=== PATIENT | female | born 1995 ===

== ENCOUNTER 2017-01-11 18:32 | Emergency (ER) | payer BC ==
[~2017-01-11] VITALS: Ht 165.1 cm; Wt 92.2 kg
[2017-01-11 18:38] VITALS: TEMP 36.7; Ht 165.1 cm; Wt 92.2 kg
[2017-01-11] MEDS ORDERED: KETOROLAC TROMETHAMINE 30 MG/ML VIAL IV STA (19:05)
[2017-01-11 19:58] LABS: BASO % 0.4 %; BASO ABS # 0.04 K/uL (0-0.2); COMPLETE YES; EOS % 1.8 %; HEMATOCRIT 40.6 % (37-47); IG% 0.1 %; LYMPH ABS # 2.59 K/uL (1.2-3.4); MEAN CELL VOLUME 89.6 fL (80-100); MEAN CORPUSCULAR HEMOGLOBIN 30.5 pg (25-34); MEAN PLATELET VOLUME 8.8 fL (7.4-10.4); NEUT % 63.7 %; PLATELET COUNT 322 K/uL (130-400); RED BLOOD COUNT 4.53 M/uL (4.2-5.4); WHITE BLOOD COUNT 9.96 K/uL (4.8-10.8)
[2017-01-11 20:09] LABS: PREG INTERNAL NEGATIVE QC NEG CLEAR BACKGROUND; PREG INTERNAL POSITIVE QC POS CONTROL LINE
[2017-01-11 20:10] LABS: PARTIAL THROMBOPLASTIN RATIO 1.4; PROTHROMBIN TIME (PATIENT) 10.5 SECONDS (9.0-12.0)
[2017-01-11 20:33] LABS: BUN/CREATININE RATIO 16.7 (10-20); CALCIUM 9.2 mg/dl (8.5-10.1); CREATININE 0.79 mg/dl (0.60-1.20); POTASSIUM 3.7 mmol/L (3.5-5.1)
[2017-01-11 20:36] LABS: ALB/GLOB RATIO 0.9 (0.9-2)
--- NOTE | 2017-01-11 21:13 | DIAGNOSTIC IMAGING REPORT ---
CHEST 2 VIEWS ROUTINE HISTORY: 21 years-old Female EVAL CHEST PAIN acute atypical chest pain COMPARISON: None available TECHNIQUE: Frontal and lateral views of the chest FINDINGS: Cardiomediastinal and hilar silhouettes are within normal limits. No pneumothorax, pleural effusion, focal airspace consolidation or overt pulmonary edema. Bones of the chest are grossly intact. IMPRESSION: No acute cardiopulmonary process. The above report was generated using voice recognition software. It may contain grammatical, syntax or spelling errors. Electronically signed by: Mikhail Badillo M.D. 01/11/2017 9:12 PM Dictated Date/Time: 01/11/2017 9:11 PM
[2017-01-11 21:26] LABS: PREG INTERNAL NEGATIVE QC NEG CLEAR BACKGROUND; PREG INTERNAL POSITIVE QC POS CONTROL LINE
--- NOTE | 2017-01-11 21:40 | EMERGENCY ROOM VISIT NOTE ---
History First contact with patient: 18:47 Chief Complaint: SHOULDER PAIN Stated Complaint: R SHOULDER PAIN, CHEST PAIN History of Present Illness Patient is a [id number] 21-year-old female who presents emergency department. I female friend for evaluation of right shoulder pain that radiates into the right upper chest. She's had pain for over one day. It started at rest at home yesterday. She describes a constant, aching pain in the right shoulder that radiates to the right upper chest. She tried Tylenol, BenGay and massage which only mild her with limited relief. The pain increased in severity today. She says the pain is not changed with position changes. She does note increased pain with laying on the right side or when she takes a deep breath. She also notes that she was bothered by carrying a bag on her right shoulder today. She denies any cough, congestion or shortness of breath. No abdominal pain, nausea or vomiting. She denies any trauma or unusual activity prior to onset of her pain. She denies any calf or leg pain or swelling. She does not smoke, is not on any oral contraceptives. No personal or family history of DVT or PE. She did travel by bus home to [place] , 2 days prior to the onset of her pain, and returned today. Review of Systems Review of systems as per HPI. All other systems reviewed were negative. 10 systems reviewed. Past Medical/Surgical History Medical Problems: (1) Gastritis (2) Stomach problems Does not have any old records for review. Supplemental sheet was completed by the patient was reviewed by myself. Social History Smoking Status: Never Smoker Alcohol Use: occasionally Housing Status: lives with roommate Occupation Status: [employer] student Current/Historical Medications No Active Prescriptions or Reported Meds Physical Exam Vital Signs Date Time Temp Pulse Resp B/P (MAP) Pulse Ox O2 Delivery O2 Flow Rate FiO2 01/11/17 21:45 68 16 116/87 100 01/11/17 21:07 60 18 115/68 100 Room Air 01/11/17 18:38 36.7 56 18 107/57 100 Room Air Physical Exam CONSTITUTIONAL: Patient is a well-appearing 21-year-old white female who is awake and alert and in no acute distress. Vital signs are stable. EYES: Pupils equal, round, reactive to light and accommodation. EOMs intact without nystagmus. Sclera are anicteric. ENT: Tympanic membranes intact, with normal landmarks. External canals are clear. Oral and nasopharynx are clear. Mucous membranes are moist, no lesions , tongue and gums appear normal. NECK: No bruits auscultated. Supple without lymphadenopathy. No thyromegaly. No meningeal signs. Full active range of motion without discomfort. CARDIOVASCULAR: Regular rate and rhythm, with normal S1 and S2, no murmur or gallop or rub is heard. No carotid bruits auscultated. No JVD. Peripheral pulses easy to palpable. There is slight discomfort on palpation of the right upper chest. RESPIRATORY: Breath sounds equal and clear to auscultation without wheezes, rales, or rhonchi heard. Full and equal chest expansion without accessory muscle use or retractions. GI: Bowel sounds are present. Abdomen is soft, nontender, nondistended. No organomegaly. No pulsatile masses. No guarding or rebound. MUSCULOSKELETAL: Full range of motion of extremities x 4 with good strength. No cyanosis, edema, joint tenderness or swelling. No deformity. INTEGUMENTARY: No lesions or rash, normal skin turgor. NEUROLOGICAL: Alert, oriented, and cooperative. Cranial nerves, sensation and strength grossly intact. Pupils round, equal, and react to light, EOMs are full. LYMPH: No lymphadenopathy. Medical Decision & Procedures ER Provider Diagnostic Interpretation: CHEST 2 VIEWS ROUTINE HISTORY: 21 years-old Female EVAL CHEST PAIN acute atypical chest pain COMPARISON: None available TECHNIQUE: Frontal and lateral views of the chest FINDINGS: Cardiomediastinal and hilar silhouettes are within normal limits. No pneumothorax, pleural effusion, focal airspace consolidation or overt pulmonary edema. Bones of the chest are grossly intact. IMPRESSION: No acute cardiopulmonary process. Laboratory Results 01/11/17 19:43 Red Blood Count 4.53, Mean Corpuscular Volume 89.6, Mean Corpuscular Hemoglobin 30.5, Mean Corpuscular Hemoglobin Concent 34.0, Mean Platelet Volume 8.8, Neutrophils (%) (Auto) 63.7, Lymphocytes (%) (Auto) 26.0, Monocytes (%) (Auto) 8.0, Eosinophils (%) (Auto) 1.8, Basophils (%) (Auto) 0.4, Neutrophils # (Auto) 6.34, Lymphocytes # (Auto) 2.59, Monocytes # (Auto) 0.80, Eosinophils # (Auto) 0.18, Basophils # (Auto) 0.04 01/11/17 19:43 Test 01/11/17 19:40 01/11/17 19:43 01/11/17 19:52 Urine Test NEG (NEG) White Blood Count 9.96 K/uL (4.8-10.8) Red Blood Count 4.53 M/uL (4.2-5.4) Hemoglobin 13.8 g/dL (12.0-16.0) Hematocrit 40.6 % (37-47) Mean Corpuscular Volume 89.6 fL (80-100) Mean Corpuscular Hemoglobin 30.5 pg (25-34) Mean Corpuscular Hemoglobin Concent 34.0 g/dl (32-36) Platelet Count 322 K/uL (130-400) Mean Platelet Volume 8.8 fL (7.4-10.4) Neutrophils (%) (Auto) 63.7 % Lymphocytes (%) (Auto) 26.0 % Monocytes (%) (Auto) 8.0 % Eosinophils (%) (Auto) 1.8 % Basophils (%) (Auto) 0.4 % Neutrophils # (Auto) 6.34 K/uL (1.4-6.5) Lymphocytes # (Auto) 2.59 K/uL (1.2-3.4) Monocytes # (Auto) 0.80 K/uL (0.11-0.59) Eosinophils # (Auto) 0.18 K/uL (0-0.5) Basophils # (Auto) 0.04 K/uL (0-0.2) RDW Standard Deviation 40.3 fL (36.4-46.3) RDW Coefficient of Variation 12.4 % (11.5-14.5) Immature Granulocyte % (Auto) 0.1 % Immature Granulocyte # (Auto) 0.01 K/uL (0.00-0.02) Prothrombin Time 10.5 SECONDS (9.0-12.0) Prothromb Time International Ratio 1.0 (0.9-1.1) Activated Partial Thromboplast Time 35.4 SECONDS (21.0-31.0) Partial Thromboplastin Ratio 1.4 Anion Gap 6.0 mmol/L (3-11) Est Creatinine Clear Calc Drug Dose 128.5 ml/min Estimated GFR () 125.8 Estimated GFR (Non- 108.5 BUN/Creatinine Ratio 16.7 (10-20) Calcium Level 9.2 mg/dl (8.5-10.1) Total Bilirubin 0.3 mg/dl (0.2-1) Aspartate Amino Transf (AST/SGOT) 12 U/L (15-37) Alanine Aminotransferase (ALT/SGPT) 15 U/L (12-78) Alkaline Phosphatase 74 U/L (45-117) Total Creatine Kinase 110 U/L (26-192) Creatine Kinase MB < 0.5 ng/ml (0.5-3.6) Creatine Kinase MB Ratio (0-3.0) Troponin I < 0.015 ng/ml (0-0.045) Total Protein 8.5 gm/dl (6.4-8.2) Albumin 4.1 gm/dl (3.4-5.0) Globulin 4.4 gm/dl (2.5-4.0) Albumin/Globulin Ratio 0.9 (0.9-2) Lipase 138 U/L (73-393) Human Chorionic Gonadotropin, Qual NEG (NEG) Bedside D-Dimer 295 ng/mlFEU (0-450) Medications Administered Medications (Trade) Dose Ordered Sig/Brigid Route Start Time Stop Time Status Last Admin Dose Admin Ketorolac Tromethamine (Toradol Inj) 30 mg NOW STAT IV 01/11/17 19:05 01/11/17 19:08 DC 01/11/17 19:59 30 MG ECG Indication: chest pain Rate (beats per minute): 56 Rhythm: sinus bradycardia Findings: paced rhythm, no ectopy Comparison ECG Date: no prior available ED Course The patient was seen and examined as above. She presents with right chest. Times greater than 24 hours. She has some reproducible discomfort on exam. IV lock was initiated. She was medicated with Toradol IV. EKG was performed and was as noted above. Chest x-ray was obtained and was unremarkable. Laboratory studies noted a normal white count. H&H is within normal limits. Electrolytes , renal functions and LFTs are all within normal limits. Cardiac enzymes are negative 1 with symptoms greater than 24 hours. Lipase is not indicative of pancreatitis. A d-dimer was performed and was negative. Given this and lack of risk factors for PE, further workup was not pursued. All laboratory and diagnostic imaging findings were reviewed with the patient. Her pain appears to be musculoskeletal in nature. It is reproducible on examination. She did report some relief of her pain with the IV Toradol. She rated her discomfort a 6/10 at discharge. Conservative care measures were discussed. The patient was educated on worrisome signs or symptoms for which she should return to the emergency department. She was discharged home with a friend in good condition. Differential diagnosis includes acute myocardial infarction, acute coronary syndrome, myocarditis, pericarditis, pericardial effusions /tamponade, esophageal perforation, pulmonary embolism, pneumonia, pneumothorax, cardiomyopathy, congestive heart failure, anemia , COPD/asthma exacerbation, musculoskeletal, anxiety, costochondritis, among others. Medical Decision See ED course. Medication Reconcilliation Current Medication List: was personally reviewed by me Blood Pressure Screening Patient's blood pressure: Normal blood pressure Blood pressure disposition: Did not require urgent referral Impression Primary Impression: Right-sided chest wall pain Departure Information Prescriptions No Active Prescriptions or Reported Meds Referrals [facility] (PCP) Patient Instructions [facility] Additional Instructions Ibuprofen(Motrin, Advil) may be used for fever or pain. Use 600mg every six hours as needed. Take with food. Avoid using more than 2400mg in a 24 hour period. Do not use 2400mg per day for more than three consecutive days without physician direction. Prolonged inappropriate use can lead to stomach upset or ulcers. (AND/OR) Acetaminophen(Tylenol) may be used for fever or pain. Use 1000mg every six hours as needed. Avoid using more than 3000mg in a 24 hour period. Rest and drink plenty of fluids as tolerated. Continue current medications. Avoid strenuous activities and anything that worsens your pain. Resume normal activities once your symptoms resolve. Return to the ER immediately for worsening or persistent chest pain, abdominal pain, vomiting, fevers, chest pains, difficulty breathing, worsening of your condition, or as needed. Follow up with [facility] in 2-3 days for a recheck of your current condition.
[2017-01-11 21:45] VITALS: BP 116/87; PULSE 68; O2SAT 100
== END 2017-01-11 21:45 | disposition home or self-care (01) ==
LOC: C.EDB 18:33 → C.EDC 21:45
DX: R07.89 Other chest pain (principal); R00.1 Bradycardia, unspecified

== ENCOUNTER 2017-01-17 21:48 | Emergency (ER) | payer BC ==
[~2017-01-17] VITALS: Ht 165.1 cm; Wt 90.0 kg
[2017-01-17 21:50] VITALS: BP 112/73; PULSE 64; TEMP 36.6; O2SAT 98; Ht 165.1 cm; Wt 90.0 kg
[2017-01-17] MEDS ORDERED: TRAMADOL HCL 50 MG TAB PO STA (22:01)
[2017-01-17] MEDS ORDERED: ACETAMINOPHEN 500 MG TAB PO STA (22:01)
--- NOTE | 2017-01-17 22:41 | DIAGNOSTIC IMAGING REPORT ---
R FOOT MIN 3 VIEWS ROUTINE CLINICAL HISTORY: Right foot pain TRAUMA COMPARISON: None. DISCUSSION: No fractures or dislocations are visualized. IMPRESSION: No fractures or dislocations identified. Electronically signed by: Rainer Hope M.D. 01/17/2017 10:39 PM Dictated Date/Time: 01/17/2017 10:38 PM
--- NOTE | 2017-01-17 22:41 | DIAGNOSTIC IMAGING REPORT ---
R ANKLE MIN 3 VIEWS ROUTINE CLINICAL HISTORY: Right ankle pain status post trauma COMPARISON: None. DISCUSSION: No fractures are visualized. The ankle mortise appears intact. There is minor lateral soft tissue swelling. IMPRESSION: No fractures identified. Electronically signed by: Rainer Hope M.D. 01/17/2017 10:40 PM Dictated Date/Time: 01/17/2017 10:39 PM
--- NOTE | 2017-01-17 23:34 | EMERGENCY ROOM VISIT NOTE ---
History First contact with patient: 21:56 Chief Complaint: ANKLE PAIN Stated Complaint: SPRAINED RT ANKLE History of Present Illness The patient is a 21 year old female who presents to the Emergency Room with complaints of right ankle and foot pain after she twisted her ankle this evening. The patient reports hearing something pop on the side of her foot area she denies any pain extending into the leg, and denies any paresthesias or numbness of the right foot or toes. The patient does report a prior history of right ankle sprains. Weightbearing worsens her pain to an 8 out of 10. Review of Systems 10 system review was performed and was negative except for pertinent positives and negatives as indicated in history of present illness Past Medical/Surgical History Medical Problems: (1) Gastritis (2) Stomach problems Family History FH: diabetes mellitus FH: heart disease FH: hypertension Social History Smoking Status: Never Smoker Alcohol Use: occasionally Marital Status: single Housing Status: lives with roommate Occupation Status: [employer] student Current/Historical Medications No Active Prescriptions or Reported Meds Physical Exam Vital Signs Date Time Temp Pulse Resp B/P (MAP) Pulse Ox O2 Delivery O2 Flow Rate FiO2 01/17/17 21:50 36.6 64 18 112/73 98 Room Air Physical Exam CONSTITUTIONAL: Healthy and well nourished. Alert and oriented X 3 with positive affect. Patient does not appear in any acute distress on exam. HEENT: Normocephalic, atraumatic. Pupils equal, round and reactive. NECK: Full active range of motion without discomfort. MUSCULOSKELETAL: Examination of the right ankle and foot shows predominant lateral ankle edema and edema over the lateral aspect of the foot. She is tender over the lateral malleolus and ligament, lateral foot and dorsum of the foot. She has worsening pain with subtalar motion. Negative anterior draw. Mild tenderness to palpation through the Achilles tendon. She has mild tenderness over the deltoid ligament. Pedal pulses are intact. INTEGUMENTARY: No rash or other significant dermatologic conditions noted. NEUROLOGIC: Right foot and toes are sensory intact. Medical Decision & Procedures ER Provider Diagnostic Interpretation: My interpretation of right ankle and foot x-rays does not show any acute fractures, dislocation or ankle mortise asymmetry. Radiologist reports were also reviewed. Medications Administered Medications (Trade) Dose Ordered Sig/Brigid Route Start Time Stop Time Status Last Admin Dose Admin Acetaminophen (Tylenol Tab) 1,000 mg NOW STAT PO 01/17/17 22:01 01/17/17 22:04 DC 01/17/17 22:39 1,000 MG Tramadol HCl (Ultram Tab) 50 mg ONE STAT PO 01/17/17 22:01 01/17/17 22:04 DC 01/17/17 22:40 50 MG ED Course Patient history and physical exam were performed. Nurse's notes were reviewed. Vital signs were reviewed and were normal. The patient was administered Tylenol for additional pain relief. An ice pack was applied. X-rays of the right ankle and foot were normal. The patient was dispensed crutches, and encouraged to remain limited weightbearing over the next several days. She was encouraged to ice and elevate the ankle for swelling. Ibuprofen and Tylenol in alternating fashion as needed for additional pain relief. The patient was instructed to follow-up with orthopedics with any persistent symptoms that do not improve over the next 7 days. The patient was happy with plan of care, voiced understanding of all discharge instructions, and rated her pain a 5 out of 10 at the conclusion of my exam. Medical Decision Blood Pressure Screening Patient's blood pressure: Normal blood pressure Impression Primary Impression: Right ankle sprain Additional Impression: Right foot sprain Departure Information Dispostion Home / Self-Care Prescriptions No Active Prescriptions or Reported Meds Referrals No Doctor, Assigned Forms HOME CARE DOCUMENTATION FORM, IMPORTANT VISIT INFORMATION Patient Instructions [facility] Additional Instructions Intermittently apply ice and elevate the foot/ankle for swelling and pain. Minimize weight on foot for the next 3 days, using crutches. Perform range of motion exercises of the ankle to prevent stiffness. After 3 days, and still using crutches, slowly apply weight as tolerated - NO LIMPING. Follow-up with orthopedics if symptoms are not improving within the next 7 days. Problem Qualifiers Primary Impression: Right ankle sprain Encounter type: initial encounter Involved ligament of ankle: unspecified ligament Qualified Codes: S93.401A - Sprain of unspecified ligament of right ankle, initial encounter Additional Impression: Right foot sprain Encounter type: initial encounter Qualified Codes: S93.601A - Unspecified sprain of right foot, initial encounter
== END 2017-01-17 23:15 | disposition home or self-care (01) ==
LOC: C.EDB 21:49 → C.EDD 23:15
DX: S93.401A Sprain of unspecified ligament of right ankle, initial encounter (principal); S93.601A Unspecified sprain of right foot, initial encounter; X50.9XXA Other and unspecified overexertion or strenuous movements or postures, initial encounter; K29.70 Gastritis, unspecified, without bleeding; Z83.3 Family history of diabetes mellitus; Z82.49 Family history of ischemic heart disease and other diseases of the circulatory system